=== PATIENT | female | born 1995 | race Caucasian/White ===

== ENCOUNTER 2017-04-05 09:16 | Emergency (ER) | payer OTHER ==
[~2017-04-05] VITALS: Ht 157.5 cm; Wt 86.2 kg
[2017-04-05] MEDS ORDERED: VENTOLIN HFA 1818 GM INH (09:42)
[2017-04-05] MEDS ORDERED: DIAMOX SEQUELS500 MG PO (09:43)
[2017-04-05] MEDS ORDERED: GABAPENTIN 100100 MG PO (09:44)
[2017-04-05] MEDS ORDERED: FLOVENT HFA 1110 MCG INH (09:44)
[2017-04-05] MEDS ORDERED: OMEPRAZOLE 20 M20 M1 PO (09:44)
[2017-04-05] MEDS ORDERED: KAPVAY0.1 MG PO (09:44)
[2017-04-05 09:55] LABS: ABSOLUTE NEUTROPHILS 6.4 thou/uL (1.4-8.2); BASOPHILS 0.4 % (0.0-2.0); EOSINOPHILS 0.6 % (0.0-3.0); HEMOGLOBIN 15.7 gm/dL (12.0-15.0); LYMPHOCYTES 14.1 % (24.0-44.0); MCH 30.2 pg (26.0-34.0); MCHC 34.1 g/dL (28.0-37.0); MCV 88.6 fL (80.0-100.0); MONOCYTES 5.5 % (1.0-8.0); PLATELET COUNT 212 thou/uL (150-400); POLYS 79.4 % (36.0-66.0); RDW 12.4 % (10.5-14.5); WBC 8.1 thou/uL (4.0-11.0)
[2017-04-05 10:00] LABS: MANUAL DIFF NO
[2017-04-05 10:21] LABS: CALCIUM 9.2 mg/dL (8.5-10.1); CREATININE 0.7 mg/dL (0.6-1.0)
[2017-04-05 10:28] LABS: ALBUMIN 4.2 g/dL (3.4-5.0); DIRECT BILIRUBIN 0.2 mg/dL (<0.1-0.3); TOTAL BILIRUBIN 1.1 mg/dL (<0.1-1.0); TOTAL PROTEIN 8.1 g/dL (6.4-8.2)
[2017-04-05 11:18] LABS: URINE BILIRUBIN NEGATIVE (Negative); URINE BLOOD NEGATIVE (Negative); URINE COLOR YELLOW; URINE GLUCOSE-RANDOM* NEGATIVE (Negative); URINE KETONES NEGATIVE (Negative); URINE NITRITE NEGATIVE (Negative); URINE PROTEIN (DIPSTICK) NEGATIVE (Negative); URINE SPECIFIC GRAVITY >= 1.030 (1.003-1.035); URINE UROBILINOGEN 0.2 E.U./dl (0.2-1.0)
[2017-04-05] MEDS ORDERED: PHENERGAN 25 MG25 M1 PO (11:51)
[2017-04-05 12:36] VITALS: BP 139/62
== END 2017-04-05 12:36 | disposition home or self-care (01) ==
LOC: ER 09:16
PROVIDERS: Nurse Practitioner
DX: R11.2 Nausea with vomiting, unspecified (principal); K58.9 Irritable bowel syndrome, unspecified; J45.909 Unspecified asthma, uncomplicated; Z88.8 Allergy status to other drugs, medicaments and biological substances